=== PATIENT | male | born 1960 | race Hispanic/Latino ===

== ENCOUNTER 2018-11-30 10:40 | Emergency (ER) | payer BC, OTHER ==
[~2018-11-30] VITALS: Ht 180.3 cm; Wt 93.9 kg
== END 2018-11-30 11:40 | disposition left against medical advice (07) ==
LOC: ER 10:40
DX: M79.661 Pain in right lower leg (principal)

== ENCOUNTER 2019-05-11 18:25 | Emergency (ER) | payer BC ==
[~2019-05-11] VITALS: Ht 180.3 cm; Wt 93.9 kg
[2019-05-11 19:51] LABS: BILIRUBIN,URINE NEGATIVE (NEGATIVE); CLARITY,URINE CLEAR (CLEAR); KETONES,URINE NEGATIVE (NEGATIVE); LEUKOCYTE ESTERASE ,URINE NEGATIVE (NEGATIVE); NITRITE,URINE NEGATIVE (NEGATIVE); PROTEIN,URINE DIPSTICK NEGATIVE (NEGATIVE); URINE UROBILINOGEN 0.2 mg/dL (0.2 - 1)
[2019-05-11 19:54] LABS: COLOR,URINE COLORLESS (YELLOW)
[2019-05-11 20:07] LABS: RBC,URINE 0-5 /HPF (0-5); WBC,URINE (MAN) 0-5 /HPF (0-5)
== END 2019-05-11 21:51 | disposition left against medical advice (07) ==
LOC: ER 18:25
DX: R19.7 Diarrhea, unspecified (principal); R51 Headache; R50.9 Fever, unspecified
CPT/HCPCS: 81001